=== PATIENT | male | born 1985 | race Caucasian/White ===

== ENCOUNTER 2017-01-30 12:37 | Emergency (ER) | payer MEDICARE ==
[~2017-01-30] VITALS: Ht 167.6 cm; Wt 68.1 kg
[~2017-01-30 12:37] MED LIST: LORA-446 PO
[2017-01-30 12:41] VITALS: BP 130/77
== END 2017-01-30 13:17 | disposition left against medical advice (07) ==
LOC: ED 13:11
DX: M54.9 Dorsalgia, unspecified (principal); Z53.21 Procedure and treatment not carried out due to patient leaving prior to being seen by health care provider

== ENCOUNTER 2017-02-14 05:36 | Emergency (ER) | payer MEDICARE ==
[~2017-02-14] VITALS: Ht 167.6 cm; Wt 67.5 kg
[2017-02-14 05:37] VITALS: BP 152/85
== END 2017-02-14 07:03 | disposition home or self-care (01) ==
LOC: ED 05:51
DX: B96.89 Other specified bacterial agents as the cause of diseases classified elsewhere (principal); J20.8 Acute bronchitis due to other specified organisms; M54.5 Low back pain; F17.200 Nicotine dependence, unspecified, uncomplicated
CPT/HCPCS: 71020; 99284

== ENCOUNTER 2017-04-05 09:09 | Emergency (ER) | payer MEDICARE ==
[~2017-04-05] VITALS: Ht 167.6 cm; Wt 66.0 kg
[2017-04-05] MEDS ORDERED: LORazepam 1MG TABLET ONE (09:56)
[2017-04-05] MEDS ORDERED: LORazepam 1MG TABLET PO ONE (10:00)
[2017-04-05 10:47] VITALS: BP 125/89
== END 2017-04-05 11:22 | disposition home or self-care (01) ==
LOC: ED 10:29
DX: R07.89 Other chest pain (principal); F41.1 Generalized anxiety disorder
CPT/HCPCS: 36415; 71046; 84484; 93005; 99285

== ENCOUNTER 2017-08-18 08:20 | Emergency (ER) | payer MEDICARE, MEDICAID ==
[~2017-08-18] VITALS: Ht 167.6 cm; Wt 73.0 kg
[2017-08-18 08:22] VITALS: BP 134/82
== END 2017-08-18 09:20 | disposition home or self-care (01) ==
LOC: ED 09:15
DX: S39.012A Strain of muscle, fascia and tendon of lower back, initial encounter (principal); F41.0 Panic disorder [episodic paroxysmal anxiety]; X50.0XXA Overexertion from strenuous movement or load, initial encounter; Y93.89 Activity, other specified; Y92.89 Other specified places as the place of occurrence of the external cause; Y99.8 Other external cause status
CPT/HCPCS: 99283

== ENCOUNTER 2017-08-20 12:19 | Emergency (ER) | payer MEDICARE, MEDICAID ==
[~2017-08-20] VITALS: Ht 167.6 cm; Wt 74.7 kg
[2017-08-20 12:20] VITALS: BP 128/82
[2017-08-20] MEDS ORDERED: SERT100T PO (12:40)
[2017-08-20] MEDS ORDERED: RISPERDAL (12:41)
== END 2017-08-20 14:08 | disposition home or self-care (01) ==
LOC: ED 12:47
DX: F41.1 Generalized anxiety disorder (principal); Z87.891 Personal history of nicotine dependence
CPT/HCPCS: 93005; 99284; Q0177

== ENCOUNTER 2017-11-07 09:29 | Emergency (ER) | payer MEDICARE, MEDICAID ==
[~2017-11-07] VITALS: Ht 167.6 cm; Wt 82.0 kg
[~2017-11-07 09:29] MED LIST changes: +ARIP10TA33 PO; +DIVA500T2 PO; +RISPERDAL; +SERT100T PO
[2017-11-07 09:31] VITALS: BP 123/65
== END 2017-11-07 11:07 | disposition home or self-care (01) ==
LOC: ED 10:56
DX: G89.29 Other chronic pain (principal); M54.2 Cervicalgia; M54.6 Pain in thoracic spine
CPT/HCPCS: 99283

== ENCOUNTER 2017-11-28 09:00 | Emergency (ER) | payer MEDICARE, MEDICAID ==
[~2017-11-28] VITALS: Ht 167.6 cm; Wt 83.0 kg
[2017-11-28] MEDS ORDERED: DEXAMETHASONE 4 MG TABLET PO ONE (09:30)
[2017-11-28] MEDS ORDERED: GABAPENTIN 300 MG CAPSULE PO ONE (09:30)
[2017-11-28] MEDS ORDERED: DEXAMETHASONE 4 MG TABLET ONE (09:36)
[2017-11-28] MEDS ORDERED: GABAPENTIN 300 MG CAPSULE ONE (09:37)
[2017-11-28 10:56] VITALS: BP 124/82
== END 2017-11-28 10:58 | disposition home or self-care (01) ==
LOC: ED 10:23
DX: S39.012A Strain of muscle, fascia and tendon of lower back, initial encounter (principal); M51.36 Other intervertebral disc degeneration, lumbar region; X58.XXXA Exposure to other specified factors, initial encounter; Y93.89 Activity, other specified; Y92.89 Other specified places as the place of occurrence of the external cause; Y99.8 Other external cause status
CPT/HCPCS: 99283

== ENCOUNTER 2018-01-20 08:11 | Emergency (ER) | payer MEDICARE, MEDICAID ==
[~2018-01-20] VITALS: Ht 167.6 cm; Wt 92.0 kg
[2018-01-20] MEDS ORDERED: BUSP10TA PO (08:37)
[2018-01-20] MEDS ORDERED: ESCI20TA10 PO (08:37)
[2018-01-20] MEDS ORDERED: GABAPENTIN 300 MG CAPSULE ONE (08:50)
[2018-01-20] MEDS ORDERED: GABAPENTIN 300 MG CAPSULE PO ONE (09:00)
[2018-01-20 09:58] VITALS: BP 137/90
== END 2018-01-20 09:59 | disposition home or self-care (01) ==
LOC: ED 08:44
DX: G89.29 Other chronic pain (principal); M54.5 Low back pain
CPT/HCPCS: 99283; J7512

== ENCOUNTER 2018-04-25 09:39 | Emergency (ER) | payer MEDICARE, MEDICAID ==
[~2018-04-25] VITALS: Ht 167.6 cm; Wt 91.0 kg
[~2018-04-25 09:39] MED LIST changes: +BUSP10TA PO; +ESCI20TA10 PO
--- NOTE | 2018-04-25 10:02 | NUR ---
report given to Arlene
[2018-04-25] MEDS ORDERED: GABAPENTIN 300 MG CAPSULE PO ONE (10:30)
[2018-04-25] MEDS ORDERED: GABAPENTIN 300 MG CAPSULE ONE (10:33)
[2018-04-25 11:46] VITALS: BP 120/78
== END 2018-04-25 11:46 | disposition home or self-care (01) ==
LOC: ED 11:27
DX: S33.5XXA Sprain of ligaments of lumbar spine, initial encounter (principal); F41.1 Generalized anxiety disorder; X58.XXXA Exposure to other specified factors, initial encounter; Y93.89 Activity, other specified; Y92.89 Other specified places as the place of occurrence of the external cause; Y99.8 Other external cause status
CPT/HCPCS: 99283; J7512

== ENCOUNTER 2018-05-06 08:50 | Emergency (ER) | payer MEDICARE, MEDICAID ==
[~2018-05-06] VITALS: Ht 167.6 cm; Wt 92.0 kg
[2018-05-06 08:52] VITALS: BP 151/83
--- NOTE | 2018-05-06 08:59 | NUR ---
Pt ambulates to room from triage with steady gait and balance. NADN. No defecits observed.
--- NOTE | 2018-05-06 09:05 | NUR ---
First contact with pt. Pt sitting on sadieFroylan JIMENEZ. Per pt, "I have a bad back with buldged discs, it has been hurting pretty bad. I have been having really bad numbness and tingling really bad in my arms (bilaterally) and legs (bilaterally). I have had a cough for a week (no cough at this time) that I really can't explain, and I feel fuzzy in my head." Pt denies cp, sob, n/v, loss of bowel or bladder control. Pt denies falls. Pt states, "I have had diarrhea for a month straight and my last time was this morning." ED MD at bedside.
[2018-05-06] MEDS ORDERED: LITH20CA PO (09:18)
--- NOTE | 2018-05-06 09:23 | NUR ---
Pt states he recently started taking [place] over the past "few weeks" and has not had lithium levels checked yet. ED aware.
[2018-05-06 09:41] LABS: BASOPHILS # (AUTO) 0.05 x10^3/uL (0-0.1); BASOPHILS % (AUTO) 1 % (0-1); EOSINOPHILS # (AUTO) 0.33 x10^3/uL (0-0.4); EOSINOPHILS % (AUTO) 3 % (1-7); LYMPHOCYTES # (AUTO) 2.86 x10^3/uL (1-3.4); LYMPHOCYTES % (AUTO) 29 % (22-44); MD NO; MEAN CORPUSCULAR HEMOGLOBIN 32.6 pg (27.5-34.5); MEAN CORPUSCULAR HGB CONC 34.4 g/dL (33.2-36.2); MEAN CORPUSCULAR VOLUME 94.8 fL (81-97); MONOCYTES # (AUTO) 1.03 x10^3/uL (0.2-0.8); MONOCYTES % (AUTO) 11 % (2-9); NEUTROPHILS # (AUTO) 5.55 x10^3/uL (1.8-6.8); NEUTROPHILS % (AUTO) 57 % (42-75); PLATELET COUNT 291 x10^3/uL (130-400); RED BLOOD COUNT 4.67 x10^6/uL (4.38-5.82); RED CELL DISTRIBUTION WIDTH 14.2 % (9.4-14.8)
--- NOTE | 2018-05-06 09:43 | NUR ---
Pt ambulatory with steady gait and balance to x-ray. No defecits observed.
[2018-05-06 09:52] LABS: ALANINE AMINOTRANSFERASE 33 U/L (12-78); ANION GAP 7 mmol/L (5-15); CALCIUM 8.3 mg/dL (8.5-10.1); CHLORIDE 112 mmol/L (98-107); CREATININE 1.49 mg/dL (0.7-1.3)
[2018-05-06 09:55] LABS: ALKALINE PHOSPHATASE 77 U/L (45-117); BILIRUBIN,TOTAL 0.3 mg/dL (0.2-1.0)
--- NOTE | 2018-05-06 10:44 | NUR ---
Pt resting on sadie. PRATIKN. No needs expressed at this time.
--- NOTE | 2018-05-06 11:30 | NUR ---
Patient/Caregiver given discharge instructions and they have confirmed that they understand the instructions. Patient ambulatory with steady gait.
== END 2018-05-06 11:31 | disposition home or self-care (01) ==
LOC: ED 10:08
DX: J45.909 Unspecified asthma, uncomplicated (principal); R20.2 Paresthesia of skin; R93.89 Abnormal findings on diagnostic imaging of other specified body structures
CPT/HCPCS: 36415; 71046; 80053; 80178; 83735; 85025; 93005; 99284

== ENCOUNTER 2018-08-17 11:25 | Emergency (ER) | payer MEDICARE, MEDICAID ==
[~2018-08-17] VITALS: Ht 167.6 cm; Wt 85.7 kg
[~2018-08-17 11:25] MED LIST changes: +LITH20CA PO
[2018-08-17 11:29] VITALS: BP 127/91
--- NOTE | 2018-08-17 11:47 | NUR ---
PT HERE FOR UPPER URI SYMPTOMS. PT REPORTS CHRONIC CONGESTION AND COUGH FOR A FEW WEEKS. ONLY HAS RELEIF WITH RESTING. PT HAS NO HYPOXIA OR RESP DISTRESS. LUNG TEMPLE ARE CTA. NO TRAUMA REPORTED BY PATIENT. PT RESTING IN BED AND CALL LIGHT IN REACH. AWAITIN FURTHER ORDERS.
--- NOTE | 2018-08-17 12:25 | NUR ---
Patient/Caregiver given discharge instructions and they have confirmed that they understand the instructions. Patient ambulatory with steady gait.
== END 2018-08-17 12:56 | disposition home or self-care (01) ==
LOC: ED 12:50
DX: J45.909 Unspecified asthma, uncomplicated (principal); J20.8 Acute bronchitis due to other specified organisms; F17.200 Nicotine dependence, unspecified, uncomplicated
CPT/HCPCS: 71046; 93005; 99283

== ENCOUNTER 2018-10-29 04:17 | Emergency (ER) | payer MEDICARE, MEDICAID ==
[~2018-10-29] VITALS: Ht 167.6 cm; Wt 78.1 kg
[~2018-10-29 04:17] MED LIST changes: +LAMO100T6 PO
[2018-10-29 04:19] VITALS: BP 115/70
== END 2018-10-29 05:23 | disposition home or self-care (01) ==
LOC: ED 05:09
DX: F10.239 Alcohol dependence with withdrawal, unspecified (principal); F41.1 Generalized anxiety disorder; Z72.9 Problem related to lifestyle, unspecified; Y90.9 Presence of alcohol in blood, level not specified
CPT/HCPCS: 99283

== ENCOUNTER 2018-12-25 23:30 | Emergency (ER) | payer MEDICARE, MEDICAID ==
[~2018-12-25] VITALS: Ht 167.6 cm; Wt 80.1 kg
[2018-12-26 00:21] VITALS: BP 126/64
== END 2018-12-26 00:23 | disposition home or self-care (01) ==
LOC: ED 12-26 00:17
DX: M25.511 Pain in right shoulder (principal); R07.89 Other chest pain; J45.909 Unspecified asthma, uncomplicated; F17.200 Nicotine dependence, unspecified, uncomplicated; Z72.89 Other problems related to lifestyle
CPT/HCPCS: 99281

== ENCOUNTER 2019-01-08 11:15 | Emergency (ER) | payer MEDICAID, MEDICARE ==
[~2019-01-08] VITALS: Ht 167.6 cm; Wt 77.0 kg
[2019-01-08 11:20] VITALS: BP 144/93
--- NOTE | 2019-01-08 11:54 | NUR ---
TASK RN: IN TO D/C PATIENT. PT HAS LEFT ROOM BEFORE D/C INSTRUCTION. PT LEFT WITH ALL PERSONAL BELONGINGS.
== END 2019-01-08 11:56 | disposition home or self-care (01) ==
LOC: ED 11:50
DX: J02.8 Acute pharyngitis due to other specified organisms (principal); F10.10 Alcohol abuse, uncomplicated; F41.0 Panic disorder [episodic paroxysmal anxiety]; F41.9 Anxiety disorder, unspecified; Z59.0 Homelessness; Z72.9 Problem related to lifestyle, unspecified; Z91.14 Patient's other noncompliance with medication regimen; Z87.19 Personal history of other diseases of the digestive system
CPT/HCPCS: 99281

== ENCOUNTER 2019-03-02 10:28 | Emergency (ER) | payer MEDICARE, MEDICAID ==
[~2019-03-02] VITALS: Ht 167.6 cm; Wt 77.3 kg
[2019-03-02 10:59] VITALS: BP 113/80
--- NOTE | 2019-03-02 11:47 | NUR ---
Patient/Caregiver given discharge instructions and they have confirmed that they understand the instructions. Patient ambulatory with steady gait. PT D/C FROM [facility].
== END 2019-03-02 11:49 | disposition home or self-care (01) ==
LOC: ED 11:43
DX: J00 Acute nasopharyngitis [common cold] (principal); F17.200 Nicotine dependence, unspecified, uncomplicated
CPT/HCPCS: 99283

== ENCOUNTER 2019-08-05 10:09 | Emergency (ER) | payer MEDICARE, MEDICAID ==
[~2019-08-05] VITALS: Ht 170.2 cm; Wt 75.0 kg
--- NOTE | 2019-08-05 10:27 | NUR ---
LIGHT ARMORED VEHICLE OFFICER: PT TO ROOM FROM LOBBY
--- NOTE | 2019-08-05 10:35 | NUR ---
PT C/O ABD PAIN FOR LAST 4-5 HOURS AFTER DRINKING ALCOHOL HEAVILY FOR LAST FEW DAYS WITH METH AND SMOKING CIGARETTES MORE THAN HE USUALLY DOES. PT REPORTS BRB BLOODY STOOL WELL THAT STARTED TODAY. CHART UP FOR .
--- NOTE | 2019-08-05 10:54 | NUR ---
RECEIVED REPORT FROM DANIELLE FLETCHER. ASSUMING CARE AT THIS TIME.
[2019-08-05] MEDS ORDERED: DICYCLOMINE 10 MG/ML, 2ML ONE (10:56)
[2019-08-05] MEDS ORDERED: ONDANSETRON 2MG/ML, 2ML ONE (10:56)
[2019-08-05] MEDS ORDERED: FAMOTIDINE 20 MG/2 ML ONE (10:57)
[2019-08-05] MEDS ORDERED: FAMOTIDINE 20 MG/2 ML IV ONE (11:00)
[2019-08-05] MEDS ORDERED: DICYCLOMINE 10 MG/ML, 2ML IM ONE (11:00)
[2019-08-05] MEDS ORDERED: SODIUM CHLORIDE FLUSH 10ML SYR IVF ONE (11:00)
[2019-08-05] MEDS ORDERED: SODIUM CHLORIDE 0.9% 1,000ML IVBOLUS ONE (11:00)
[2019-08-05] MEDS ORDERED: ONDANSETRON 2MG/ML, 2ML IVPush ONE (11:00)
--- NOTE | 2019-08-05 11:04 | NUR ---
MEDS ADMIN PER APR. IVF RUNNING.
[2019-08-05 11:18] LABS: BASOPHILS # (AUTO) 0.05 x10^3/uL (0-0.1); BASOPHILS % (AUTO) 0 % (0-1); EOSINOPHILS # (AUTO) 0.02 x10^3/uL (0-0.4); EOSINOPHILS % (AUTO) 0 % (1-7); LYMPHOCYTES # (AUTO) 2.32 x10^3/uL (1-3.4); LYMPHOCYTES % (AUTO) 14 % (22-44); MD NO; MEAN CORPUSCULAR HEMOGLOBIN 31.4 pg (27.5-34.5); MEAN CORPUSCULAR HGB CONC 33.2 g/dL (33.2-36.2); MEAN CORPUSCULAR VOLUME 94.4 fL (81-97); MONOCYTES # (AUTO) 1.19 x10^3/uL (0.2-0.8); MONOCYTES % (AUTO) 7 % (2-9); NEUTROPHILS # (AUTO) 12.92 x10^3/uL (1.8-6.8); NEUTROPHILS % (AUTO) 78 % (42-75); PLATELET COUNT 367 x10^3/uL (130-400); RED BLOOD COUNT 5.66 x10^6/uL (4.38-5.82); RED CELL DISTRIBUTION WIDTH 15.1 % (9.4-14.8)
[2019-08-05 11:21] LABS: ALBUMIN 4.6 g/dL (3.4-5.0); ANION GAP 12 mmol/L (5-15); CALCIUM 9.7 mg/dL (8.5-10.1); CHLORIDE 107 mmol/L (98-107)
[2019-08-05 11:25] LABS: ALANINE AMINOTRANSFERASE 23 U/L (12-78); ALKALINE PHOSPHATASE 81 U/L (45-117); BILIRUBIN,TOTAL 0.7 mg/dL (0.2-1.0); TOTAL PROTEIN 7.8 g/dL (6.4-8.2)
--- NOTE | 2019-08-05 11:42 | NUR ---
RECEIVED NEW ORDERS FOR MEDS AND CT.
[2019-08-05 11:44] LABS: MICROSCOPIC AUTO
[2019-08-05] MEDS ORDERED: MORPHINE SULFATE 4 MG/ML, 1ML ONE (11:45)
[2019-08-05] MEDS ORDERED: LORazepam 2 MG/ML, 1ML ONE (11:45)
--- NOTE | 2019-08-05 11:51 | NUR ---
MEDS ADMIN PER APR. PT PLACED ON OXYGEN FOR SAFETY. FATHER AT BEDSIDE.
[2019-08-05] MEDS ORDERED: LORazepam 2 MG/ML, 1ML IVPush ONE (12:00)
[2019-08-05] MEDS ORDERED: MORPHINE SULFATE 4 MG/ML, 1ML IVPush ONE (12:00)
--- NOTE | 2019-08-05 12:47 | NUR ---
ALL RESULTS ARE BACK AT THIS TIME. CHART UP FOR RECHECK.
[2019-08-05 12:49] VITALS: BP 149/92
--- NOTE | 2019-08-05 12:50 | NUR ---
PT STATES HE FEELS BETTER AND MORE RELAXED.
== END 2019-08-05 13:11 | disposition home or self-care (01) ==
LOC: ED 11:53
DX: K29.20 Alcoholic gastritis without bleeding (principal); D72.829 Elevated white blood cell count, unspecified; R45.4 Irritability and anger; F10.239 Alcohol dependence with withdrawal, unspecified; J45.909 Unspecified asthma, uncomplicated; F17.200 Nicotine dependence, unspecified, uncomplicated; Y90.9 Presence of alcohol in blood, level not specified
CPT/HCPCS: 36415; 74177; 80053; 80307; 81001; 83690; 83735; 85025; 96372; 96374; 96375; 99285; J0500; J2060; J2270; J2405; J3490; J7030

== ENCOUNTER 2019-10-11 06:42 | Emergency (ER) | payer MEDICARE, MEDICAID ==
[~2019-10-11] VITALS: Ht 175.3 cm; Wt 78.0 kg
[2019-10-11] MEDS ORDERED: ONDANSETRON 2MG/ML, 2ML ONE (06:55)
[2019-10-11] MEDS ORDERED: FAMOTIDINE 20 MG/2 ML ONE (06:56)
[2019-10-11] MEDS ORDERED: SODIUM CHLORIDE FLUSH 10ML SYR IVF ONE (07:00)
[2019-10-11] MEDS ORDERED: FAMOTIDINE 20 MG/2 ML IVPush ONE (07:00)
[2019-10-11] MEDS ORDERED: SODIUM CHLORIDE 0.9% 1,000ML IVBOLUS ONE (07:00)
[2019-10-11] MEDS ORDERED: ONDANSETRON 2MG/ML, 2ML IVPush ONE (07:00)
[2019-10-11 07:15] LABS: BASOPHILS # (AUTO) 0.03 x10^3/uL (0-0.1); BASOPHILS % (AUTO) 0 % (0-1); EOSINOPHILS # (AUTO) 0.02 x10^3/uL (0-0.4); EOSINOPHILS % (AUTO) 0 % (1-7); LYMPHOCYTES # (AUTO) 1.49 x10^3/uL (1-3.4); LYMPHOCYTES % (AUTO) 15 % (22-44); MD NO; MEAN CORPUSCULAR HEMOGLOBIN 32.6 pg (27.5-34.5); MEAN CORPUSCULAR HGB CONC 33.4 g/dL (33.2-36.2); MEAN CORPUSCULAR VOLUME 97.7 fL (81-97); MONOCYTES # (AUTO) 0.64 x10^3/uL (0.2-0.8); MONOCYTES % (AUTO) 6 % (2-9); NEUTROPHILS # (AUTO) 8.01 x10^3/uL (1.8-6.8); NEUTROPHILS % (AUTO) 79 % (42-75); PLATELET COUNT 267 x10^3/uL (130-400); RED BLOOD COUNT 4.65 x10^6/uL (4.38-5.82); RED CELL DISTRIBUTION WIDTH 16.4 % (9.4-14.8)
[2019-10-11 07:27] LABS: ALANINE AMINOTRANSFERASE 22 U/L (12-78); ALBUMIN 4.6 g/dL (3.4-5.0); ANION GAP 13 mmol/L (5-15); CHLORIDE 108 mmol/L (98-107); CREATININE 1.08 mg/dL (0.7-1.3)
[2019-10-11 07:29] LABS: ALKALINE PHOSPHATASE 81 U/L (45-117); BILIRUBIN,TOTAL 0.5 mg/dL (0.2-1.0); TOTAL PROTEIN 7.5 g/dL (6.4-8.2)
[2019-10-11 08:37] LABS: MICROSCOPIC NOT IND
[2019-10-11 09:01] VITALS: BP 116/92
--- NOTE | 2019-10-11 09:02 | NUR ---
PT UPRIGHT ON GURNEY AWKE, ABLE TO DOZE OFF, BREAKFAST TRAY GIVEN, PT RESPONDS APPROP TO STAFF, NAD- DENIES PAIN & ASKING TO CALL DAD, COMFORT MEASURES PROVIDED, CALL LIGHT WITHIN REACH.
--- NOTE | 2019-10-11 09:49 | NUR ---
PT STATES HE IS UNABLE TO EAT ANYTHING EXCEPT DRINK HIS MILK- LONG VALDEZ.
--- NOTE | 2019-10-11 10:02 | NUR ---
PT LEFT ROOM TO CALL DAD- "I'M WORRIED ABOUT MY DOG (IN [place] IN [place]) & I WANT HIM TO PICK HIM UP", PT REASSURED DOG IS OK BUT PT REMAINS ANXIOUS- PA JOSEPH AWARE, PT RETURNED TO [facility] TO GO BACK TO SLEEP, PT RESPONDS APPROP TO STAFF, NAD, COMFORT MEASURES PROVIDED, CALL LIGHT WITHIN REACH.
--- NOTE | 2019-10-11 10:17 | NUR ---
VENDOR REPRESENTATIVES: PT D/C AND TOOK HIS DOG THAT WAS PLACED IN [place]. DOG IN NAD.
--- NOTE | 2019-10-11 10:23 | NUR ---
Patient given discharge instructions and Rx, pt refused all DC paperwork & Rx, left with dad & dog from [facility], they have confirmed that they understand the instructions. Patient ambulatory with steady gait.
== END 2019-10-11 10:25 | disposition home or self-care (01) ==
LOC: ED 10:12
DX: E16.2 Hypoglycemia, unspecified (principal); R10.84 Generalized abdominal pain; R53.1 Weakness; R00.0 Tachycardia, unspecified; R11.0 Nausea; J45.909 Unspecified asthma, uncomplicated
CPT/HCPCS: 36415; 80053; 81003; 82962; 83690; 85025; 96361; 96374; 96375; 99284; J2405; J3490; J7030

== ENCOUNTER 2019-12-08 02:33 | Emergency (ER) | payer MEDICARE, MEDICAID ==
[~2019-12-08] VITALS: Ht 167.6 cm; Wt 78.0 kg
[2019-12-08 02:36] VITALS: BP 121/83
--- NOTE | 2019-12-08 02:36 | NUR ---
PT CAME INTO ED TONIGHT FROM [place], PT IS RECENTLY HOMELESS AND STATES HE HAS A MEZA AND N/V, DENIES DIARRHEA, STATES MEDICATIONS WERE STOLEN BY HIS FATHER AND HE IS CONCERNED THAT HE IS WITHDRAWLING FROM THEM. STATES THROWING UP BILE. PT GROSS NEURO INTACT, NO DEFICITS NOTED, ALSO C/O HAJA BLOOD IN STOOL. PT NAD. PT REQUESTING FOOD AND WATER FROM RN. PT PLACED ON SPO2/BP MONITORING. PT GIVEN 4 MG ZOFRAN
--- NOTE | 2019-12-08 03:13 | NUR ---
NAVEEN ALVES AT BEDSIDE FOR EVAL AND POC. NAD, WCTM. PT STATES HE IS NO LONGER NAUSEATED.
--- NOTE | 2019-12-08 03:19 | NUR ---
Patient given discharge instructions and they have confirmed that they understand the instructions. Patient ambulatory with steady gait. PROVIDED SNACK PACK WITH SANDWICH SUPPLIES, WATER, SPRITE, APPLESAUCE, AND CRACKERS. NAD, DENIES ADDITIONAL NEEDS AT THIS TIME. NO PERSONAL BELONGINGS LEFT IN ROOM AFTER DC.
== END 2019-12-08 03:35 | disposition home or self-care (01) ==
LOC: ED 03:08
DX: R11.0 Nausea (principal); R51.9 Headache, unspecified; R00.0 Tachycardia, unspecified; J45.909 Unspecified asthma, uncomplicated; F17.200 Nicotine dependence, unspecified, uncomplicated
CPT/HCPCS: 99283

== ENCOUNTER 2019-12-09 23:03 | Emergency (ER) | payer MEDICARE, MEDICAID ==
[~2019-12-09] VITALS: Ht 167.6 cm; Wt 75.0 kg
[2019-12-09 23:07] VITALS: BP 117/78
--- NOTE | 2019-12-09 23:18 | NUR ---
pt admits to drinking few shots of alcohol today and smoking cannabis. he is dx bipolar takes his medicines regularly but says he needs psych/clinical social work therapist consults. he is tearful at times and difficult to follow regarding what his needs/wants are for the er visit.
--- NOTE | 2019-12-09 23:34 | NUR ---
PT RIPPED OFF ALL VS MONITORING EQUIPMENT, STATES HE WON'T LET ME TOUCH HIM TO PROVIDE ANY WOUND CARE. PT GIVEN DC INSTRUCT, HE HAS A STEADY GAIT. SECURITY CALLED TO ESCORT PT OUT OF ER AND ACCOUNTS PAYABLE LEAD HIS DOG IN [place].
== END 2019-12-09 23:45 | disposition home or self-care (01) ==
LOC: ED 23:11
DX: S80.811A Abrasion, right lower leg, initial encounter (principal); F10.10 Alcohol abuse, uncomplicated; F12.10 Cannabis abuse, uncomplicated; G89.11 Acute pain due to trauma; Z72.9 Problem related to lifestyle, unspecified; F17.210 Nicotine dependence, cigarettes, uncomplicated; Y04.8XXA Assault by other bodily force, initial encounter; Y93.89 Activity, other specified; Y92.098 Other place in other non-institutional residence as the place of occurrence of the external cause; Y99.8 Other external cause status; Y90.9 Presence of alcohol in blood, level not specified
CPT/HCPCS: 99283; 99406